=== PATIENT | male | born 1975 | race Caucasian/White ===

== ENCOUNTER 2023-12-15 13:54 | Emergency (ER) | payer OTHER, SELFPAY ==
[2023-12-15 13:58] VITALS: BP 148/82
--- NOTE | 2023-12-15 15:11 | ED.GENMED ---
History of Present Illness
General
Chief Complaint: Foreign Body Removal
Source: patient
Exam Limitations: none
Time Seen by Provider: 12/15/23 14:57
Nursing documentation reviewed up to this point in time: agreed with
History of Present Illness
History of Present Illness:
48-year-old male with past medical history of GERD who presents to the emergency room for evaluation of sensation of esophageal foreign body. Patient says that using very thick nachos last night and he felt a sharp piece get stuck in his throat.
He says that he has been drinking fluids and swallowing soft foods to try to get the foreign body to pass but has not been successful. He reports mild odynophagia. No dysphagia. He has not had any vomiting and is tolerating secretions. He says
that today he called GI office and was directed to the emergency room to be evaluated-normally sees Dr. Pritchard for GERD.
Past History
Past History
ED Past Medical History: Other (Gastritis); Negative Arrthythmia
ED Past Surgical History: Tonsilectomy; Negative Cardiac
Patient has exhibited threatening behavior?: No
PSI?: No
Social History
Tobacco: Non-smoker
Alcohol: Occasional
Drug: None
Personal:
Living: with family
Employment: Employed
Family History
Family History: Other (Noncontributory)
Review of Systems
Review of Systems
All Other Systems: ROS reviewed and negative except as documented in HPI and ROS
EENT: Reports other (Sensation of foreign body in throat; odynophagia)
Respiratory: Denies cough or trouble breathing
Cardiac: Denies chest pain
ABD/GI: Denies abdominal pain, nausea or vomiting
Phy Exam
Physical Exam
Physical Exam:
General: Awake, alert, oriented x3; no acute distress
Head: Normocephalic, atraumatic
Eyes: Conjunctiva normal
Throat: Airway intact, handling secretions, midline uvula, no visible foreign body in the upper airway
Neck: Trachea midline, supple without meningismus
Lungs: Clear to auscultation bilaterally, no wheezing, rales, rhonchi
Heart: Regular rate and rhythm, no murmurs, gallops, or rubs
Neuro: No gross deficits
Extremities: Atraumatic, warm well-perfused
Scores
Heart Failure Risk
Heart Failure Risk Score: Not Applicable
Heart Score for Chest Pain Patients
STEMI patient?: Not applicable
Withdrawal Assessment of Alcohol
Withdrawal Assessment Completed?: Not applicable
Course
Vital Signs
Initial and Last Documented VS:
Initial Vital Signs
Temp Pulse Resp BP Pulse Ox
36.8 C 64 18 148/82 99
12/15/23 13:58 12/15/23 13:58 12/15/23 13:58 12/15/23 13:58 12/15/23 13:58
Last Documented Vital Signs
Temp Pulse Resp BP Pulse Ox
36.8 C 64 18 148/82 99
12/15/23 13:58 12/15/23 13:58 12/15/23 13:58 12/15/23 13:58 12/15/23 13:58
MDM/Problems Addressed
Differential Diagnosis Includes:
Esophageal foreign body, mucosal tear, esophagitis
MDM/Problems Addressed:
48-year-old male presents with sensation of something stuck in his throat after swallowing a nausea last night. Mild odynophagia, no dysphagia, no vomiting and handling secretions. Directed to the ER for evaluation. Appears well here, no visible
foreign body�he reports feeling something stuck just below larynx. Discussed with gastroenterology who recommended starting patient on PPI twice daily and Carafate for likely mucosal tear. Discharge to follow-up in the office.
*Pulse Oximetry
Patient hypoxic: no
*Critical Care Note
Total Time (30-74mins, 75-104mins- exclusive of procedures): Not Applicable
Data Reviewed
Source: patient
Patient Management
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
ED Attending Note
-
Portions of this chart may have been created with voice recognition software.� Occasional wrong word or��sound alike� substitutions may have occurred due to the inherent limitations of voice recognition software.
Discharge Plan
Departure
Patient with high blood pressure during this ER visit?: Yes
Discharge Problem:
Mucosal tear of esophagus
Instructions: Food Obstruction
Prescriptions:
New
pantoprazole [Protonix] 40 mg tablet,delayed release (DR/EC)
40 mg PO BID Qty: 60 0RF
sucralfate [Carafate] 100 mg/mL suspension
10 ml PO ACHS Qty: 1000 0RF
No Action
ranitidine HCl [Acid Bench [place] (ranitidine)] 75 MG tablet
75 mg PO DAILY
Referrals:
Yi Pritchard DO [Active] - Call in 1-3 days for appt
Bernarda Parekh MD [Family Provider] - Call in 1-3 days for appt
Activity Restrictions/Additional Instructions:
Thank you for visiting the Emergency Department at [facility].
1. Please schedule a follow up appointment as directed. Call first thing tomorrow morning to make an appointment.
2. If indicated, please take your medications as instructed and indicated on discharge paperwork.
3. If any of your symptoms do not improve, or persist, or become more severe within 6-12 hours, please return to the emergency department for further care.
4. Please return to the emergency department if you develop a headache, neck pain/stiffness, fever greater than 100.4F, chest pain, shortness of breath, persistent nausea, vomiting, slurred speech, difficulty walking, numbness/tingling, weakness,
signs of infection or any other symptoms that are worrisome to you.
Please call [phone] if you have any questions.
Interventions
Interventions:
*Risk Screen - Suicide Last Done: 12/15/23 13:58
*General Assessment Last Done: 12/15/23 13:58
*Neglect/Abuse Screening Last Done: 12/15/23 13:58
*ED COVID-19 Vaccine History Last Done: 12/15/23 13:58
Discharge Date and Time
Print Language: CITIZEN OF [place]
[2023-12-15] MEDS: PROTONIX 40 MG PO (15:32)
[2023-12-15] MEDS: MAALOX 30 PO (15:33)
== END 2023-12-15 16:35 | disposition home or self-care (01) ==
LOC: EMR 13:54
PROVIDERS: EMERGENCY PHYSICIAN Emergency Medicine; FAMILY PHYSICIAN Family Medicine
DX: S27.813A Laceration of esophagus (thoracic part), initial encounter (principal); R09.A2 Foreign body sensation, throat; R11.0 Nausea; R13.10 Dysphagia, unspecified; X58.XXXA Exposure to other specified factors, initial encounter; R03.0 Elevated blood-pressure reading, without diagnosis of hypertension; K21.9 Gastro-esophageal reflux disease without esophagitis; Z87.19 Personal history of other diseases of the digestive system; Z88.1 Allergy status to other antibiotic agents
CPT/HCPCS: 99283

== ENCOUNTER 2025-04-06 07:36 | Emergency (ER) | payer OTHER, SELFPAY ==
[2025-04-06 07:38] VITALS: BP 132/67
--- NOTE | 2025-04-06 08:04 | ED.GENMED ---
History of Present Illness
General
Chief Complaint: Throat Problem
Source: patient
Exam Limitations: none
Time Seen by Provider: 04/06/25 07:42
Nursing documentation reviewed up to this point in time: agreed with
History of Present Illness
History of Present Illness:
Patient is a 49-year-old male presents to the ER with right lateral foot discomfort. Patient was playing basketball last night got hit with another player's hand directly in the right lateral neck. He complains of feeling a sore throat mostly
inside this region. He has not taken anything for pain. He denies any shortness of breath. He has been able to swallow his own secretions normally and drink fluids.
Past History
Past History
ED Past Medical History: Other (Gastritis); Negative Arrthythmia
ED Past Surgical History: Tonsilectomy; Negative Cardiac
Patient has exhibited threatening behavior?: No
PSI?: No
Social History
Tobacco: Non-smoker
Alcohol: Occasional
Drug: None
Personal:
Living: with family
Employment: Employed
Family History
Family History: Other (Noncontributory)
Phy Exam
General Physical Exam
General Presentation: no apparent distress
General age: appears stated age
General Skin: warm and dry
General Habitus: normal
General Mental: alert
General Hydration: appears well hydrated
ENT Exam
ENT Exam: other (Pharynx is clear no exudate no drooling tolerating secretions well)
Cardiovascular Exam
Cardiovascular Exam: regular rate/rhythm, no murmur and normal peripheral pulses
Pulmonary Exam
Pulmonary Exam: lungs clear and no respiratory distress
Neurological Exam
Neurological Exam: alert and oriented x3
Musculoskeletal Exam
Musculoskeletal Exam: other (Normal inspection to right lateral neck mildly tender to lateral neck however no crepitus palpated)
Skin Exam
Skin Exam: normal color and warm/dry
Psychiatric Exam
Psychiatric Exam: normal mood/affect
Course
Orders/Labs/Results
Orders:
Orders
04/06/25 08:04
Neck Soft Tissue [CR Soft Tissue Neck ] Urgent
Comment:
Reason For Exam: trauma right lateral neck
04/06/25 08:06
Ibuprofen [Motrin] 600 mg PO NOW STA
Vital Signs
Initial and Last Documented VS:
Initial Vital Signs
Temp Pulse Resp BP Pulse Ox
98.2 F 69 16 132/67 98
04/06/25 07:38 04/06/25 07:38 04/06/25 07:38 04/06/25 07:38 04/06/25 07:38
Last Documented Vital Signs
Temp Pulse Resp BP Pulse Ox
98.6 F 64 20 115/81 99
04/06/25 08:53 04/06/25 08:53 04/06/25 08:53 04/06/25 09:00 04/06/25 09:01
Maternal Child Nurse consulted with Physician
Maternal Child Nurse consulted with physician?: Yes
Name of Physician Consulted: Adria
MDM/Problems Addressed
Differential Diagnosis Includes:
Not limited contusion less likely vascular injury
MDM/Problems Addressed:
Patient is well-appearing in no acute distress mildly tender to right lateral neck no crepitus palpated soft tissue x-ray negative.no shortness of breath,. Pharynx is normal on exam. He is tolerating his secretions well drinking fluids. He has
not taken anything for pain. Ibuprofen given. Likely contusion. Return precautions reviewed.
*Radiology
Radiology exam reviewed: radiology read reviewed
*Pulse Oximetry
SaO2: 98
Oxygen Mode of Delivery: Room air
Patient hypoxic: no
*Critical Care Note
Total Time (30-74mins, 75-104mins- exclusive of procedures): Not Applicable
ED Attending Note
-
Portions of this chart may have been created with voice recognition software.� Occasional wrong word or��sound alike� substitutions may have occurred due to the inherent limitations of voice recognition software.
Discharge Plan
Departure
Patient Disposition: Home (Routine Discharge)
Date of Disposition: 04/06/25
Time of Disposition: 09:12
Patient with high blood pressure during this ER visit?: No
Condition: Fair
Covid-19: Not Applicable
Discharge Problem:
Contusion
Instructions: Contusion
Prescriptions:
No Action
Acid [place] (ranitidine) 75 MG tablet
75 mg PO DAILY
pantoprazole [Protonix] 40 mg tablet,delayed release (DR/EC)
40 mg PO BID Qty: 60 0RF
sucralfate [Carafate] 100 mg/mL suspension
10 ml PO ACHS Qty: 1000 0RF
Referrals:
Bernarda Parekh MD [Family Provider, Family Practice]
Activity Restrictions/Additional Instructions:
As discussed continue to take ibuprofen every 8 hours as needed you may alternate with Tylenol. Ice to the affected area. Return if any worsening of symptoms including any difficulty swallowing increasing pain or shortness of breath. Follow-up
with your family doctor in the next several days as needed for reevaluation.
Interventions
Interventions:
*Risk Screen - Suicide Last Done: 04/06/25 07:38
*General Assessment Last Done: 04/06/25 08:53
*Neglect/Abuse Screening Last Done: 04/06/25 07:38
*ED COVID-19 Vaccine History Last Done: 04/06/25 08:53
*ED Influenza Vaccine History Last Done: 04/06/25 08:53
[facility] Risk Assessment Tool Last Done: 04/06/25 08:53
ED-EENT Assessment Last Done: 04/06/25 08:53
ED- Pulmonary Assessment Last Done: 04/06/25 08:53
Discharge Date and Time
Print Language: [place]
[2025-04-06] MEDS: MOTRIN 600 MG PO (08:49)
[2025-04-06 08:53] VITALS: BP 122/72; BMI 24.4
[2025-04-06 09:00] VITALS: BP 115/81
== END 2025-04-06 09:39 | disposition home or self-care (01) ==
LOC: EMR 07:36
PROVIDERS: EMERGENCY PHYSICIAN Emergency Medicine; FAMILY PHYSICIAN Family Medicine
DX: S10.93XA Contusion of unspecified part of neck, initial encounter (principal); W50.0XXA Accidental hit or strike by another person, initial encounter; Y93.67 Activity, basketball; Z87.19 Personal history of other diseases of the digestive system
CPT/HCPCS: 99283; 70360